=== PATIENT | female | born 1990 | race Two or more races ===

== ENCOUNTER 2017-04-05 16:28 | Emergency (ER) | payer MEDICAID, OTHER ==
[~2017-04-05] VITALS: Ht 157.5 cm; Wt 86.2 kg
[2017-04-05 16:41] VITALS: BP 115/76
[2017-04-05 17:25] LABS: Basophils # (auto) 0.1 uL; Basophils % (auto) 1.3 % (0.0-2.0); Eosinophils # (auto) 0.1 uL; Hemoglobin 10.3 g/dL (12.2-16.2); Neutrophils # (auto) 2.9 uL
[2017-04-05 17:27] LABS: Eosinophils % (auto) 1.1 % (0.0-7.0); Hematocrit 33.6 % (36.0-46.0); Lymphocytes # (auto) 2.4 uL; Lymphocytes % (auto) 39.8 % (10.0-50.0); Mean Corpuscular Hemoglobin 18.9 pg (28.0-32.0); Mean Corpuscular Hgb Conc. 30.5 g/dL (32.0-36.0); Monocytes # (auto) 0.5 uL; Monocytes % (auto) 9.1 % (0.0-12.0); Neutrophils % (auto) 48.7 % (37.0-80.0); Platelet Count (auto) 484 10^3/uL (140-450); Red Cell Distribution Width 18.9 % (11.8-14.3); White Blood Cell 5.9 10^3/uL (4.4-10.8)
[2017-04-05 17:56] LABS: Albumin 3.8 g/dL (3.4-5.0); Alkaline Phosphatase 109 U/L (45-117); Amylase 37 U/L (25-115); Anion Gap 7 (5-15); Aspartate Aminotransferase 22 U/L (15-37); Bilirubin, Total 0.2 mg/dL (0.2-1.0); Blood Urea Nitrogen 13 mg/dL (7-18); Calcium 8.7 mg/dL (8.5-10.1); Carbon Dioxide 25 mmol/L (21-32); Chloride 105 mmol/L (98-107); GFR African American 139 mL/min; GFR Non-African American 115 mL/min; Glucose 94 mg/dL (74-106); Potassium 4.2 mmol/L (3.5-5.1); Sodium 137 mmol/L (136-145); Total Protein 8.5 g/dL (6.4-8.2)
[2017-04-05 18:28] LABS: Urine Bilirubin Negative (Negative); Urine Blood Negative /uL (Negative); Urine Color Yellow (Yellow); Urine Glucose Normal (Normal); Urine Ketone Negative (Negative); Urine Mucus FEW (None Seen); Urine Nitrite Negative (Negative); Urine RBC 1 /hpf (0 - 4); Urine Squamous Epithelial Cell FEW /hpf (<5); Urine Urobilinogen Normal (Negative)
[2017-04-05 19:46] LABS: Hypochromia Moderate; Microcytosis Marked; Platelet Estimate Increased
== END 2017-04-06 04:56 | disposition left against medical advice (07) ==
LOC: ER 16:34
DX: R10.9 Unspecified abdominal pain (principal); Z53.21 Procedure and treatment not carried out due to patient leaving prior to being seen by health care provider
CPT/HCPCS: 36415; 74176; 80053; 81001; 81025; 82150; 83690; 84484; 85025; 93005

== ENCOUNTER 2022-11-29 23:30 | Emergency (ER) | payer MEDICAID, OTHER ==
[~2022-11-29] VITALS: Ht 157.5 cm; Wt 83.0 kg
[2022-11-29] MEDS ORDERED: OXYCODONE W/ ACETAMINOPHEN 5/325MG TABLET PO ONE (23:45)
[2022-11-30 03:51] VITALS: BP 122/70
== END 2022-11-30 03:55 | disposition home or self-care (01) ==
LOC: ER 23:30 → EDBD 23:30 → ER 11-30 03:55
DX: S16.1XXA Strain of muscle, fascia and tendon at neck level, initial encounter (principal); R51.9 Headache, unspecified; R07.89 Other chest pain; M25.561 Pain in right knee; M25.562 Pain in left knee; Z90.49 Acquired absence of other specified parts of digestive tract; Z88.1 Allergy status to other antibiotic agents; Z88.8 Allergy status to other drugs, medicaments and biological substances; Z88.5 Allergy status to narcotic agent; V89.2XXA Person injured in unspecified motor-vehicle accident, traffic, initial encounter; Y93.I9 Activity, other involving external motion; Y92.89 Other specified places as the place of occurrence of the external cause; Y99.8 Other external cause status
CPT/HCPCS: 70450; 71250; 72125; 74176

== ENCOUNTER 2024-12-25 19:01 | Emergency (ER) | payer MEDICAID, OTHER ==
[~2024-12-25] VITALS: Ht 160 cm; Wt 93.5 kg
--- NOTE | 2024-12-25 19:52 | ED.PDOC ---
Eye-HPI HPI Comments 34-YEAR-OLD FEMALE PRESENTS TO ER WITH COMPLAINTS OF TOOTHACHE X TWO DAYS. PATIENT REPORTS SHE STARTED EXPERIENCING RIGHT UPPER TOOTHACHE TWO DAYS AGO WITH ASSOCIATED RIGHT-SIDED FACIAL SWELLING, LOW GRADE FEVER AND NAUSEA X 1 DAY. SHE RATES HER CURRENT RIGHT UPPER TOOTHACHE PAIN A 7/10 WITHOUT RADIATION. DENIES U SE OF MEDICATIONS FOR CURRENT SYMPTOMS AND PRESENTS TO ER AMBULATORY ON ARRIVAL, ALERT AND ORIENTED X4, WITH STEADY GAIT, IN NO DISTRESS. DENIES VOMITING, HEADACHE OR ANY FURTHER SYMPTOMS/COMPLAINTS Chief Complaint: Face pain Time Seen by MD: 19:17 Primary Care Provider: NONE Reviewed Notes: Nurses Notes, Medications, Allergies Allergies: Coded Allergies: Amoxicillin (Verified Allergy, Unknown, 08/07/15) Codeine (Verified Allergy, Unknown, 11/29/22) Diazepam (Verified Allergy, Unknown, 08/07/15) Home Meds Active Scripts Acetaminophen (Acetaminophen) 500 Mg Tab, 500 MG PO Q4HPRN, #30 TAB 0 Refills Prov:GERBER MARI 12/25/24 Clindamycin Hcl (Clindamycin Hcl) 300 Mg Cap, 300 MG PO QID for 7 Days, #28 CAP 0 Refills Prov:GERBER MARI 12/25/24 Information Source: Patient Mode of Arrival: Ambulatory Past Medical History PAST MEDICAL HISTORY: DM Surgical History: Cholecystectomy COCKTAIL SERVER History: No Pertinent COCKTAIL SERVER History Family History Family History: Unknown Social History Smoker: Non-Smoker Alcohol: Denies ETOH Use Drugs: Denies Drug Use Lives In: Home Constitutional: denies: chills, diaphoresis, fatigue, fever, malaise, sweats, weakness, others EENTM: reports: others (As stated in HPI) Respiratory: denies: cough, hemoptysis, orthopnea, SOB at rest, shortness of breath, SOB with excertion, stridor, wheezing, others Cardiovascular: denies: chest pain, dizzy spells, diaphoresis, Dyspnea on exertion, edema, irregular heart beat, left arm pain, lightheadedness, palpitations, PND, syncope, others Gastrointestinal: denies: abdomen distended, abdominal pain, blood streaked bowels, constipated, diarrhea, dysphagia, difficulty swallowing, hematemesis, melena, nausea, poor appetite, poor fluid intake, rectal bleeding, rectal pain, vomiting, others Genitourinary: denies: abnormal vagina bleeding, burning, dyspareunia, dysuria, flank pain, frequency, hematuria, incontinence, pain, , vagina discharge, urgency, others Neurological: denies: dizziness, fainting, headache, left sided numbness, left sided weakness, numbness, paresthesia, pre-existing deficit, right sided numbness, right sided weakness, seizure, speech problems, tingling, tremors, weakness, others Musculoskeletal: denies: back pain, gout, joint pain, joint swelling, muscle pain, muscle stiffness, neck pain, others Integumetry: denies: bruises, change in color, change in hair/nails, dryness, laceration, lesions, lumps, rash, wounds, others Allergic/Immunocompromised: denies: Difficulty Healing, Frequent Infections, Hives, Itching, others Hematologic/Lymphatic: denies: anemia, blood clots, easy bleeding, easy bruising, swollen glands, others Endocrine: denies: excessive hunger, excessive sweating, excessive thirst, excessive urination, flushing, intolerance to cold, intolerance to heat, unexplained weight gain, unexplained weight loss, others Psychiatric: denies: anxiety, bipolar disorder, depression, hopeless, panic disorder, schizophrenia, sleepless, suicidal, others Physical Exam General Appearance: No Apparent Distress, Obese HEENT: PERRL/EOMI, Pharynx Normal, TMs Normal, Other (Broken right upper 2nd molar tooth noted with mild surrounding gum erythema/swelling, no bleeding/drainage noted. Mild right-sided facial swelling also appreciated, no further skin changes noted) Neck: Full Range of Motion, Non-Tender, Normal Respiratory: Chest Non-Tender, Lungs Clear, No Accessory Muscle Use, No Respiratory Distress, Normal Breath Sounds Cardiovascular: No Murmur, No Gallop, Regular Rate/Rhythm Breast Exam: Deferred Gastrointestinal: NOT DONE Genitalia: Deferred Pelvic: Deferred Rectal: Deferred Extremities: Normal capillary refill, Normal range of motion Neurologic: Alert, nursing program director II-XII nml as Tested, No Motor Deficits, Normal Affect, Normal Mood, No Sensory Deficits Cerebellar Function: Normal Reflexes: Normal Skin: Dry, Normal Color, Warm Lymphatic: No Adenopathy Was a procedure done? Was a procedure done?: No Sedation Sedation?: No EENT DIFF Eye: N/A Mouth: Thrush, Other (Dental abscess, Danielito's angina) X-Ray, Labs, Meds, VS Vital Signs Date Time Temp Pulse Resp B/P (MAP) Pulse Ox O2 Delivery O2 Flow Rate FiO2 12/25/24 21:46 98.7 83 18 134/81 (98) 100 98.7 12/25/24 19:20 99.6 103 18 158/86 (110) 99 99.6 Current Medications Medications (Trade) Dose Ordered Sig/Edward Route Start Time Stop Time Status Last Admin Clindamycin Phosphate 50 ml @ 50 mls/hr ONCE ONCE IV 12/25/24 19:45 12/25/24 20:44 DC 12/25/24 21:44 Ceftriaxone Sodium 50 ml @ 100 mls/hr ONCE ONCE IV 12/25/24 19:45 12/25/24 20:14 DC 12/25/24 21:19 Acetaminophen (Tylenol Tablet) 650 mg ONCE ONCE PO 12/25/24 19:45 12/25/24 19:46 DC 12/25/24 21:18 Benzocaine (Hurricaine [place]) 1 spr ONCE ONCE MT 12/25/24 19:45 12/25/24 19:46 DC 12/25/24 21:19 Sodium Chloride 1,000 ml @ 1,000 mls/hr Q1H ONCE IV 12/25/24 19:45 12/25/24 20:44 DC 12/25/24 21:18 Ondansetron HCl (Zofran Po) 4 mg ONCE ONCE PO 12/25/24 19:45 12/25/24 19:46 DC 12/25/24 21:18 Acetaminophen/ Hydrocodone Bitart ([place] 5/325MG Tab) 1 tab ONCE ONCE PO 12/25/24 22:15 12/25/24 22:16 DC 12/25/24 22:07 Hep-Lock IV ordered Clindamycin 900 mg IV ordered Rocephin 1 g IV ordered Tylenol 650 mg p.o. ordered [place] 5/325 mg p.o. ordered Zofran 4 mg p.o. ordered NS 1 liter IV ordered Hurricane spray ordered, patient educated on proper use/dosage Patient had improvement in symptoms, afebrile and nontoxic appearing/in no distress prior to discharge Advised to drink plenty of fluids Advised to follow up with PCP and dentist in 1-2 days Patient alert and oriented x 4 prior to discharge. Patient verbalized understanding and agreeable with current plan of care Advised to return to ER immediately if symptoms worsen Time of 1ST Reevaluation: 19:44 Reevaluation 1ST: N/A Patient Education/Counseling: Diagnosis, Treatment, Prognosis, Need For Follow Up Family Education/Counseling: No Family Present SEPSIS Sepsis Screen Date sepsis recognized/suspect: Dec 25, 2024 Time Sepsis recognized/suspect: 1919 Recent Procedure: No On Antibiotic Therapy: No Respiratory Rate >20: No Heart Rate >90: No Temp<36 C (96.8 F) or >38.3 C: No SBP <90 or MAP <65 mmHG: No New Acute Mental Status Change: No Is the patient on CPAP, BIPAP,: No Physician Orders Heplock Iv (12/25/24 ) Vital Signs Date Time Temp Pulse Resp B/P (MAP) Pulse Ox O2 Delivery O2 Flow Rate FiO2 12/25/24 21:46 98.7 83 18 134/81 (98) 100 98.7 12/25/24 19:20 99.6 103 18 158/86 (110) 99 99.6 Medications Medications Dose Ordered Sig/Edward Route Start Time Stop Time Status Last Admin Dose Admin Acetaminophen 650 mg ONCE ONCE PO 12/25/24 19:45 12/25/24 19:46 DC 12/25/24 21:18 Acetaminophen/ Hydrocodone Bitart 1 tab ONCE ONCE PO 12/25/24 22:15 12/25/24 22:16 DC 12/25/24 22:07 Benzocaine 1 spr ONCE ONCE MT 12/25/24 19:45 12/25/24 19:46 DC 12/25/24 21:19 Ceftriaxone Sodium 50 ml @ 100 mls/hr ONCE ONCE IV 12/25/24 19:45 12/25/24 20:14 DC 12/25/24 21:19 Clindamycin Phosphate 50 ml @ 50 mls/hr ONCE ONCE IV 12/25/24 19:45 12/25/24 20:44 DC 12/25/24 21:44 Ondansetron HCl 4 mg ONCE ONCE PO 12/25/24 19:45 12/25/24 19:46 DC 12/25/24 21:18 Sodium Chloride 1,000 ml @ 1,000 mls/hr Q1H ONCE IV 12/25/24 19:45 12/25/24 20:44 DC 12/25/24 21:18 Departure 1 Departure Time of Disposition: 22:32 Impression: Primary Impression: Dental infection Disposition: HOME / SELF CARE / HOMELESS Condition: Stable e-Prescriptions Ibuprofen (Ibuprofen) 800 Mg Tab 1 TAB PO TID PRN, #30 TAB 0 Refills Prov: GERBER MARI 12/25/24 Clindamycin Hcl (Clindamycin Hcl) 300 Mg Cap 300 MG PO QID for 7 Days, #28 CAP 0 Refills Prov: GERBER MARI 12/25/24 Discharged With: Friend Critical Care Note Critical Care Time?: No Stability Stability form required: No Heart Score Heart Score: Heart Score Response (Comments) Value History N/A 0 EKG N/A 0 Age N/A 0 Risk Factors N/A 0 Troponin N/A 0 Total 0 GERBER MARI Dec 25, 2024 19:52
[2024-12-25] MEDS ORDERED: CLIN1CAP70 PO (19:54)
[2024-12-25] MEDS ORDERED: ACET500T58 PO (19:54)
[2024-12-25] MEDS: ACETAMINOPHEN 325 MG TAB PO ONE (21:18)
[2024-12-25] MEDS: ONDANSETRON ODT 4 MG TAB PO ONE ×2 (21:18→23:11)
[2024-12-25] MEDS: SODIUM CHLORIDE 0.9% 1,000 ML IV ONE (21:18)
[2024-12-25] MEDS: cefTRIAXone 1GM/50ML D5W 50 ML IV ONE (21:19)
[2024-12-25] MEDS: BENZOCAINE (DENTAL) 20 % SPRAY 60ML MT ONE (21:19)
[2024-12-25] MEDS: CLINDAMYCIN 900MG IV 50 ML IV ONE (21:44)
[2024-12-25 21:46] VITALS: BP 134/81; PULSE 83; RESP 18; TEMP 98.7; O2SAT 100
[2024-12-25] MEDS: HYDROcodone-ACET 5/325MG TAB PO ONE (22:07)
[2024-12-25] MEDS ORDERED: ACE3T PO (22:38)
[2024-12-25] MEDS ORDERED: IBUP-1456 PO (22:39)
== END 2024-12-25 23:53 | disposition home or self-care (01) ==
LOC: ER 19:01
DX: K04.7 Periapical abscess without sinus (principal); E11.9 Type 2 diabetes mellitus without complications; Z90.49 Acquired absence of other specified parts of digestive tract; Z88.0 Allergy status to penicillin; Z88.5 Allergy status to narcotic agent
CPT/HCPCS: 96365; 96368; 99284; J0696; J3490; J7030; Q0162